=== PATIENT | male | born 1985 | race Hispanic/Latino ===

== ENCOUNTER 2022-03-20 00:47 | Emergency (ER) | payer OTHER ==
[~2022-03-20] VITALS: Ht 175.3 cm; Wt 113.9 kg
[2022-03-20 00:49] VITALS: BP 156/95
[2022-03-20] MEDS ORDERED: FLUORESCEIN SODIUM 1 STRIP STRIP ONE (00:58)
[2022-03-20] MEDS ORDERED: TETRACAINE HCL 0.5% 4 ML OPHTH SOLN ONE (00:58)
[2022-03-20] MEDS ORDERED: GENTAMICIN SULFATE 0.3% 5ML DROPS OU ONE (04:00)
[2022-03-20] MEDS ORDERED: DICL35CA3 PO (04:01)
== END 2022-03-20 04:49 | disposition home or self-care (01) ==
LOC: EDH 00:47
DX: H16.133 Photokeratitis, bilateral (principal)